=== PATIENT | male | born 1945 | race Two or more races ===

== ENCOUNTER 2025-01-10 19:18 | Emergency (ER) | payer BC, MEDICARE ==
[~2025-01-10] VITALS: Ht 165.1 cm; Wt 74.8 kg
[2025-01-10 19:18] VITALS: BP 142/83; PULSE 104; RESP 16; TEMP 98; O2SAT 95
--- NOTE | 2025-01-10 19:46 | ED.PDOC ---
Zachary. trauma (HPI) HPI Comments 79-YEAR-OLD MALE PRESENTS TO THE ED CHIEF COMPLAINT STATUS POST FALL RIGHT SHOULDER PAIN. PATIENT STATES/FALL LANDED ON HIS RIGHT SIDE INJURING HIS RIGHT SHOULDER. HE IS COMPLAINING OF RIGHT SHOULDER PAIN 8/10 THROBBING AND SHARP IN NATURE NONRADIATING. STATES UNABLE TO LIFT IT ABOVE HIS HEAD. HAS NOT TAKEN ANYTHING FOR THE PAIN. SLING PLACED IN TRIAGE. DENIES ANY OTHER KNOWN INJURY DENIES NUMBNESS OR WEAKNESS. Chief Complaint: Chest Pain Time Seen by MD: 19:25 Reviewed notes: Nurses Notes, Medications, Allergies Information Source: Patient Past Medical History PAST MEDICAL HISTORY: Denies Surgical History: Denies all surgeries Family History Family History: Reviewed,noncontributory to illness Social History Smoker: Non-Smoker Alcohol: Denies ETOH Use Drugs: Denies Drug Use Constitutional: denies: chills, diaphoresis, fatigue, fever, malaise, sweats, weakness, others EENTM: denies: blurred vision, double vision, ear bleeding, ear discharge, ear drainage, ear pain, ear ringing, eye pain, eye redness, hearing loss, mouth p ain, mouth swelling, nasal discharge, nose bleeding, nose congestion, nose pain, photophobia, tearing, throat pain, throat swelling, voice changes, others Respiratory: denies: cough, hemoptysis, orthopnea, SOB at rest, shortness of br eath, SOB with excertion, stridor, wheezing, others Cardiovascular: denies: chest pain, dizzy spells, diaphoresis, Dyspnea on exertion, edema, irregular heart beat, left arm pain, lightheadedness, palpitations, PND, syncope, others Gastrointestinal: denies: abdomen distended, abdominal pain, blood streaked bowels, constipated, diarrhea, dysphagia, difficulty swallowing, hematemesis, melena, nausea, poor appetite, poor fluid intake, rectal bleeding, rectal pain, vomiting, others Genitourinary: denies: burning, dysuria, flank pain, frequency, hematuria, incontinence, penile discharge, penile sore, pain, testicle pain, testicle swelling, urgency, others Neurological: denies: dizziness, fainting, headache, left sided numbness, left sided weakness, numbness, paresthesia, pre-existing deficit, right sided numbness, right sided weakness, seizure, speech problems, tingling, tremors, weakness, others Musculoskeletal: reports: joint pain, joint swelling, muscle pain, muscle stiffness Integumetry: denies: bruises, change in color, change in hair/nails, dryness, laceration, lesions, lumps, rash, wounds, others Allergic/Immunocompromised: denies: Difficulty Healing, Frequent Infections, Hives, Itching, others Hematologic/Lymphatic: denies: anemia, blood clots, easy bleeding, easy bruising, swollen glands, others Endocrine: denies: excessive hunger, excessive sweating, excessive thirst, excessive urination, flushing, intolerance to cold, intolerance to heat, unexplained weight gain, unexplained weight loss, others Psychiatric: denies: anxiety, bipolar disorder, depression, hopeless, panic disorder, schizophrenia, sleepless, suicidal, others Physical Exam General Appearance: No Apparent Distress, Normal HEENT: Normal ENT Inspection, Pharynx Normal, TMs Normal Neck: Full Range of Motion, Non-Tender Respiratory: Chest Non-Tender, Lungs Clear, No Accessory Muscle Use, No Respiratory Distress, Normal Breath Sounds Cardiovascular: No Edema, No JVD, No Murmur, No Gallop, Normal Peripheral Pulses, Regular Rate/Rhythm Breast Exam: Deferred Gastrointestinal: No Organomegaly, Non Tender, No Pulsatile Mass, Normal Bowel Sounds, Soft Genitalia: Deferred Pelvic: Deferred Rectal: Deferred Extremities: Normal capillary refill, Normal inspection, Normal range of motion, Non-tender, No pedal edema Musculoskeletal : Location: Right Extremity Location: Shoulder (DECREASED RANGE OF MOTION ABLE TO LIFT ABOVE HIS HEAD. MODERATE TENDERNESS ALONG ANTERIOR SHOULDER GIRDLE. NO NOTED ANGULATION. STRENGTH SENSORY INTACT POSITIVE RADIAL PULSE NO NOTED OBVIOUS VISIBLE OUTSIDE TRAUMA.) Apperance: Normal Neurologic: Alert, No Motor Deficits, Normal Affect, Normal Mood, No Sensory Deficits Cerebellar Function: Normal Reflexes: Normal Skin: Dry, Normal Color, Warm Lymphatic: No Adenopathy Was a procedure done? Was a procedure done?: No Differential Diagnosis Multiple Trauma: Fractures, Other (SUBLUXATION/DISLOCATION) X-Ray, Labs, Meds, VS Vital Signs Date Time Temp Pulse Resp B/P (MAP) Pulse Ox O2 Delivery O2 Flow Rate FiO2 01/10/25 19:18 98.0 104 16 142/83 (102) 95 98.0 X-Ray, Labs, Meds, VS Comment Lobby and outside checked x3 no answer Time of 1ST Reevaluation: 19:48 Reevaluation 1ST: Unchanged Time of 2ND Reevaluation: 23:23 Reevaluation 2ND: Unchanged Patient Education/Counseling: Diagnosis, Treatment, Prognosis, Need For Follow Up Family Education/Counseling: No Family Present Departure 1 Departure Time of Disposition: 23:23 Impression: Primary Impression: Right shoulder pain Qualified Codes: M25.511 - Pain in right shoulder Disposition: 07 LEFT AWOL/ELOPED Condition: Stable Discharged With: Self Critical Care Note Critical Care Time?: No Stability Stability form required: DAVID Najera [facility] Jan 10, 2025 19:46
[2025-01-10] MEDS ORDERED: HYDROcodone-ACET 10/325MG TAB PO ONE (20:00)
== END 2025-01-10 23:23 | disposition left against medical advice (07) ==
LOC: ER 19:18
DX: M25.511 Pain in right shoulder (principal); R07.89 Other chest pain; W19.XXXA Unspecified fall, initial encounter; Y93.89 Activity, other specified; Y92.89 Other specified places as the place of occurrence of the external cause; Y99.8 Other external cause status